=== PATIENT | male | born 1975 | race Caucasian/White ===

== ENCOUNTER 2024-11-25 21:48 | Emergency (ER) | payer MEDICAID, SELFPAY ==
[2024-11-25 21:51] VITALS: BMI 30.2
[2024-11-25 21:52] VITALS: BP 150/91; PULSE 103; RESP 18; TEMP 36.9; O2SAT 97
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
== END 2024-11-25 23:09 ==
LOC: SERX 22:38
PROVIDERS: Emergency Provider Emergency Medicine
DX: Z02.89 Encounter for other administrative examinations (principal); S80.02XA Contusion of left knee, initial encounter; Y93.55 Activity, bike riding; W19.XXXA Unspecified fall, initial encounter
CPT/HCPCS: 73562; 99283